=== PATIENT | female | born 1995 | race African-American/Black ===

== ENCOUNTER 2021-10-13 21:35 | Inpatient (IN) ==
[2021-10-13 22:10] LABS: Bilirubin,Urine Small mg/dL (Negative); Blood, Urine Moderate mg/dL (Negative); Glucose,Urine (UA) Negative (Negative); Ketones,Urine 80 mg/dL (Negative); Mucus,Urine Many /LPF (Occasional); Nitrite,Urine Negative (Negative); Protein,Urine 100 MG/DL; RBC,Urine 7 /HPF (0-4); Squamous Epithelial Cell,Urine Occasional /HPF (0-10); Urine Appearance Slightly Hazy (Clear); Urine Color Amber (Yellow); Urine Specific Gravity 1.027 (1.001-1.035)
[2021-10-13] MEDS: LACTATED RINGERS 1,000 ML IV SCH ×2 (22:14→23:30)
[2021-10-13] MEDS ORDERED: ONDANSETRON 4 MG/2 ML VIAL IV PRN (22:20)
[2021-10-13] MEDS ORDERED: BUTORPHANOL 2 MG/ML VIAL IV PRN (22:23)
[2021-10-13] MEDS ORDERED: LACTATED RINGERS 500 ML IV PRN (22:23)
[2021-10-13] MEDS ORDERED: MEPERIDINE 50 MG/1 ML VIAL IV PRN (22:23)
[2021-10-13] MEDS ORDERED: PROMETHAZINE 25 MG/1 ML VIAL IM PRN (22:27)
[2021-10-13] MEDS ORDERED: CITRIC ACID/SODIUM CITRATE 30 ML UDCUP PO ONE (22:27)
[2021-10-13] MEDS ORDERED: FAMOTIDINE 20 MG/2 ML VIAL IV ONE (22:27)
[2021-10-13] MEDS ORDERED: diphenhydrAMINE 50 MG/1 ML VIAL IV PRN (22:27)
[2021-10-13] MEDS ORDERED: NALOXONE 0.4 MG/ML VIAL IV PRN (22:27)
[2021-10-13] MEDS ORDERED: hydrOXYzine HCL 25 MG/1 ML VIAL IM PRN (22:27)
[2021-10-13] MEDS ORDERED: ACETAMINOPHEN 500 MG TABLET PO ONE (22:41)
[2021-10-13 22:49] LABS: Basophils % 0.2 % (0.0-0.8); Eosinophils % 0.2 % (0.00-10.9); Hematocrit 33.4 VOL% (35.7-47.0); Hemoglobin 11.6 GM/DL (12.0-16.0); Immature Granulocytes % 0.5 %; Immature Granulocytes Absolute 0.08 #; Lymphocytes # 1.8 10*3/uL (1.4-4.0); Lymphocytes % 11.3 % (21.3-54.2); Mean Corpuscular HGB Conc 34.7 GM/DL (32-36); Mean Corpuscular Volume 84.1 FL (87-102); Mean Platelet Volume 11.4 FL (9.6-12.0); Monocytes % 6.2 % (1.7-12.7); Neutrophils % 81.6 % (38.7-73.9); Platelet Count 282 T/CUMM (130-400); Red Blood Count 3.97 MC/CUMM (3.8-5.5); Red Cell Distribution Width 14.3 % (9.3-17.3); White Blood Count 15.9 T/CUMM (4-12)
[2021-10-13 23:07] LABS: Albumin 3.3 G/DL (3.4-5.0); Bilirubin,Total 0.7 MG/DL (0.20-1.00); Calcium 9.3 MG/DL (8.5-10.1); Potassium 3.3 MMOL/L (3.5-5.1)
[2021-10-13] MEDS: fentaNYL 2 MCG/ROPIV 0.2% EPID 100 ML EPIDURAL SCH (23:42)
[2021-10-13] MEDS: ePHEDrine 50 MG/ML VIAL IV PRN (23:58)
[2021-10-14] MEDS: ePHEDrine 50 MG/ML VIAL IV PRN ×2 (00:03→00:14)
[2021-10-14] MEDS: POTASSIUM CHLORIDE 20 MEQ TABLET PO PRN ×3 (00:52→05:11)
[2021-10-14 01:15] LABS: Bilirubin,Urine Negative (Negative); Blood, Urine Negative (Negative); Glucose,Urine (UA) Negative (Negative); Ketones,Urine 80 mg/dL (Negative); Mucus,Urine Many /LPF (Occasional); Nitrite,Urine Negative (Negative); Protein,Urine 100 MG/DL; Urine Appearance CLEAR (Clear); Urine Color Amber (Yellow); Urine Specific Gravity 1.027 (1.001-1.035)
[2021-10-14 01:31] LABS: Barbiturates Screen,Urine Negative (Negative); Benzodiazepines Screen,Urine Negative (Negative); Cannabinoid Screen,Urine Positive (Negative); Opiate Screen,Urine Negative (Negative); Phencyclidine Screen,Urine Negative (Negative)
[2021-10-14] MEDS ORDERED: OXYTOCIN/LR 20 UNIT/1,000 ML BAG IV SCH (05:00)
[2021-10-14] MEDS: LACTATED RINGERS 1,000 ML IV SCH (05:14)
[2021-10-14] MEDS: fentaNYL 2 MCG/ROPIV 0.2% EPID 100 ML EPIDURAL SCH (08:35)
[2021-10-14] MEDS ORDERED: miSOPROStoL 200 MCG TABLET ONE (10:46)
[2021-10-14] MEDS ORDERED: METHYLERGONOVINE 0.2 MG/1 ML AMP ONE (10:47)
[2021-10-14] MEDS ORDERED: CARBOPROST TROMETHAMINE 250 MCG/ML AMP IM ONE (10:47)
[2021-10-14 11:30] LABS: Cord Venous Blood HCO3 18.3 MMOL/L; Cord Venous Blood PCO2 36.9 MMHG; Cord Venous Blood PO2 24.9
[2021-10-14] MEDS ORDERED: BISACODYL 10 MG SUPP RECTAL PRN (13:57)
[2021-10-14] MEDS ORDERED: OXYTOCIN/LR 20 UNIT/1,000 ML BAG IV ONE (13:57)
[2021-10-14] MEDS ORDERED: HYDROCORTISONE 2.5% RECTAL CREAM 30 GM TUBE TOP PRN (13:57)
[2021-10-14] MEDS ORDERED: LANOLIN 50% CREAM 0.3 OZ TUBE TOP PRN (13:57)
[2021-10-14] MEDS ORDERED: oxyCODONE/ACETAMINOPHEN 5-325 MG TABLET PO PRN (13:57)
[2021-10-14] MEDS ORDERED: DIPH/TET/ACEL PERT BOOSTER VACCINE 0.5 ML VIAL IM ONE (13:57)
[2021-10-14] MEDS ORDERED: MEASLES/MUMPS/RUBELLA VACCINE 0.5 ML VIAL SUBCUT ONE (13:57)
[2021-10-14] MEDS ORDERED: RHO(D) IMMUNE GLOBULIN 300 MCG SYRINGE IM ONE (13:57)
[2021-10-14] MEDS ORDERED: BENZOCAINE 20%/MENTHOL 0.5% SPRAY 56 GM CAN TOP PRN (13:57)
[2021-10-14] MEDS ORDERED: WITCH HAZEL PADS 100/JAR TOP PRN (13:57)
[2021-10-14] MEDS ORDERED: ACETAMINOPHEN 325 MG TABLET PO PRN (13:57)
[2021-10-14] MEDS: oxyCODONE/ACETAMINOPHEN 5-325 MG TABLET PO PRN ×2 (17:41→23:59)
[2021-10-14] MEDS: IBUPROFEN 800 MG TABLET PO PRN (19:11)
[2021-10-14] MEDS: DOCUSATE SODIUM 100 MG CAPSULE PO SCH (21:27)
[2021-10-15 06:03] LABS: Basophils % 0.1 % (0.0-0.8); Eosinophils # 0.1 10*3/uL (0.0-0.87); Eosinophils % 0.5 % (0.00-10.9); Hematocrit 28.5 VOL% (35.7-47.0); Hemoglobin 9.6 GM/DL (12.0-16.0); Immature Granulocytes % 0.4 %; Immature Granulocytes Absolute 0.05 #; Lymphocytes # 2.4 10*3/uL (1.4-4.0); Lymphocytes % 19.3 % (21.3-54.2); Mean Corpuscular HGB Conc 33.7 GM/DL (32-36); Mean Corpuscular Volume 87.2 FL (87-102); Mean Platelet Volume 10.9 FL (9.6-12.0); Monocytes % 7.6 % (1.7-12.7); Neutrophils % 72.1 % (38.7-73.9); Platelet Count 210 T/CUMM (130-400); Red Blood Count 3.27 MC/CUMM (3.8-5.5); Red Cell Distribution Width 14.7 % (9.3-17.3); White Blood Count 12.4 T/CUMM (4-12)
[2021-10-15] MEDS: oxyCODONE/ACETAMINOPHEN 5-325 MG TABLET PO PRN ×3 (06:34→19:05)
[2021-10-15] MEDS: IBUPROFEN 800 MG TABLET PO PRN ×3 (06:34→19:05)
[2021-10-15] MEDS ORDERED: INFLUENZA VIRUS VACCINE 0.5 ML SYRINGE IM ONE (09:00)
[2021-10-15] MEDS: DOCUSATE SODIUM 100 MG CAPSULE PO SCH ×2 (10:05→21:17)
[2021-10-16] MEDS: IBUPROFEN 800 MG TABLET PO PRN ×2 (03:44→11:16)
[2021-10-16] MEDS: oxyCODONE/ACETAMINOPHEN 5-325 MG TABLET PO PRN ×3 (03:45→19:18)
[2021-10-16] MEDS: DOCUSATE SODIUM 100 MG CAPSULE PO SCH ×3 (08:55→20:13)
[2021-10-16] MEDS ORDERED: ONDANSETRON 4 MG TABLET PO PRN (21:19)
[2021-10-17] MEDS: DOCUSATE SODIUM 100 MG CAPSULE PO SCH (07:45)
[2021-10-17 13:15] VITALS: BP 122/71
== END 2021-10-17 13:15 | disposition home or self-care (01) | DRG 560 ==
LOC: N.LAB 21:35 → N.LD 21:36 → N.OB 10-14 14:10
PROVIDERS: ADMIT Obstetrics & Gynecology; ATTEND Obstetrics & Gynecology